=== PATIENT | male | born 1950 | race Caucasian/White ===

== ENCOUNTER 2016-07-06 13:48 | Observation (INO) | payer MEDICARE ==
--- NOTE | 2016-07-06 14:01 | ED.PDOC ---
History of Present Illness - General Chief Complaint: Neuro Symptoms/Deficits Stated Complaint: Slurred Speech Last known well 30 minutes ago Time Seen by Provider: 07/06/16 13:59 Source: patient, other - friend Exam Limitations: no limitations - History of Present Illness Initial Comments: 66 yo M with hx of CVA and TIA presents with 30 minutes of slurred speech, per his friend. Also had left sided weakness. The weakness and speech slurring has improved. Timing/Duration: 1/2 hour Severity: moderate Improving Factors: nothing Worsening Factors: nothing Associated Symptoms: denies symptoms Allergies/Adverse Reactions: Allergies NO KNOWN ALLERGY Allergy (Verified 07/06/16 13:49) Home Medications: Ambulatory Orders Acetaminophen [Tylenol] 1,000 mg PO QID 07/06/16 Aspirin [(None)] 325 mg PO DAILY 07/06/16 Atorvastatin Calcium [Lipitor] 20 mg PO DAILY 07/06/16 Finasteride [Proscar] 5 mg PO DAILY 07/06/16 Gabapentin [Neurontin] 100 mg PO TID 07/06/16 Glipizide [Glipizide ER] 5 mg PO DAILY 07/06/16 Ibuprofen [Advil] 600 mg PO QID 07/06/16 Lisinopril 20 mg PO BID 07/06/16 Metformin HCl [Glucophage] 1,000 mg PO BID 07/06/16 Tramadol HCl 50 mg PO TID 07/06/16 Review of Systems - Review of Systems Constitutional: States: no symptoms reported EENTM: States: no symptoms reported Respiratory: States: no symptoms reported Cardiology: States: no symptoms reported Gastrointestinal/Abdominal: States: no symptoms reported Genitourinary: States: no symptoms reported Musculoskeletal: States: no symptoms reported Neurological: States: see HPI Endocrine: States: no symptoms reported Hematologic/Lymphatic: States: no symptoms reported Family Medical History - Family History Grandparents Family History: Unknown Physical Exam - Physical Exam General Appearance: Alert Eye Exam: bilateral normal Ears, Nose, Throat: normal ENT inspection Neck: non-tender, full range of motion, supple Respiratory: lungs clear Cardiovascular/Chest: regular rate, rhythm Gastrointestinal/Abdominal: normal bowel sounds, non tender, soft Back Exam: no CVA tenderness Extremity: normal range of motion, non-tender, normal inspection 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 EKG read by me showed NSR with no ST changes nor T wave inversion. Troponin negative. 07/06/16 14:51 ABCD2 score= 5 . Moderate risk for CVA in the next 48 hours. Admitted to medicine for observation. Departure - Departure Disposition: Discharge to Home or Self Care Condition: Serious Departure Forms: ED Discharge - Pt. Copy, Patient Portal Self Enrollment Home Medications: Ambulatory Orders Acetaminophen [Tylenol] 1,000 mg PO QID 07/06/16 Aspirin [(None)] 325 mg PO DAILY 07/06/16 Atorvastatin Calcium [Lipitor] 20 mg PO DAILY 07/06/16 Finasteride [Proscar] 5 mg PO DAILY 07/06/16 Gabapentin [Neurontin] 100 mg PO TID 07/06/16 Glipizide [Glipizide ER] 5 mg PO DAILY 07/06/16 Ibuprofen [Advil] 600 mg PO QID 07/06/16 Lisinopril 20 mg PO BID 07/06/16 Metformin HCl [Glucophage] 1,000 mg PO BID 07/06/16 Tramadol HCl 50 mg PO TID 07/06/16
--- NOTE | 2016-07-06 14:16 | CT ---
Study: CT of the Head. Indication: slurred speech Technique: Axial CT images of the head were acquired without intravenous contrast. Comparison: None. Findings: No CT evidence of acute ischemia, acute hemorrhage, mass, mass effect, midline shift, or extra-axial fluid collection. Ventricles are normal in configuration without hydrocephalus. Patchy hypoattenuation of the periventricular and subcortical white matter noted. This is nonspecific but most consistent with chronic microvascular ischemic change. Global parenchymal volume loss and intracranial atherosclerosis noted as well. Paranasal sinuses are adequately aerated. Mastoid air cells are adequately aerated. Osseous structures and soft tissues are unremarkable. Impression: 1. No CT evidence of acute intracranial abnormality. If persistent concern for acute ischemia, correlation with MRI recommended given its greater sensitivity. 2. Senescent changes. Electronically signed by: Chris Gutiérrez MD 07/06/2016 14:16
[2016-07-06] MEDS ORDERED: SODIUM CHLORIDE 0.9% 1000ML 1,000 ML IVS ONE (15:19)
--- NOTE | 2016-07-06 18:26 | HP ---
SUPERVISING PHYSICIAN: Gilberto Perera MD CHIEF COMPLAINT: Change in mental status and right sided weakness. HISTORY OF PRESENT ILLNESS: This is a 66-year-old, male patient who lives in [place]. He was visiting a friend and when they got to his friend's house , his friend noticed he was slurring his words and he could not get the patient out of the car to go into his home. He brought him to the Emergency Room. His slurred speech and weakness lasted about 30 minutes. The patient does not recall any of the events during this time. He states he did have a "stroke" back in April that was untreated, which most likely was a transient ischemic attack. He had no residual problems after the incident in April. He did start seeing Dr. Franco, who is an internal medicine physician in [place]. He had only seen her once. CT of the head was done in the Emergency Room and there was no CT evidence of intracranial abnormality and recommended he may need an MRI at some point. There was also senescent changes. His lab in the Emergency Room showed a hemoglobin 12.5, hematocrit 36.2. Sodium 136, potassium 3, chloride 107, carbon dioxide 19, BUN 20, creatinine 1.30, glucose 176, magnesium 1.5. Cardiac enzymes were negative. BNP 281. I was called for admission. PAST MEDICAL HISTORY: 1. Diabetes mellitus, type 2. 2. History of cerebrovascular accident/transient ischemic attack. 3. Hypertension. 3. Diabetic neuropathy. 4. Chronic back pain. 5. Hyperlipidemia. 6. Benign prostatic hypertrophy. PAST SURGICAL HISTORY: 1. Back surgery. 2. Appendectomy. OUTPATIENT MEDICATIONS: Per the electronic medical record and awaiting verification. ALLERGIES: NO KNOWN DRUG ALLERGIES. SOCIAL HISTORY: He lives in [place]. He lives alone, but has come to [place] to stay with a friend because of his medical problems over the last two to three months. He smokes a cigar about two times monthly. He denies any ETOH or illicit drug use. REVIEW OF SYSTEMS: GENERAL: Denies fever, chills, fatigue or weight changes. HEENT: Denies sinus symptoms, ear pain, vision changes other than as per the history of present illness, or sore throat. RESPIRATORY: Denies wheezing, coughing or shortness of breath. CARDIAC: Denies chest pain, palpitations or tachycardia. GASTROINTESTINAL: Denies nausea, vomiting, diarrhea, constipation or abdominal pain. SKIN: Denies lesions or rashes. GENITOURINARY : Denies hematuria, nocturia or dysuria. NEUROLOGIC: As per history of present illness. PHYSICAL EXAMINATION: VITAL SIGNS: Afebrile. Pulse 67. Blood pressure 162/91. Respiratory rate 20. O2 saturation 94% on room air. GENERAL: This is a 66-year-old, male patient who is lying in his hospital bed. He is in no acute distress. HEENT: Normocephalic, atraumatic. Pupils are equal and reactive. Oropharynx is clear. NECK: Supple without mass. No jugular venous distention. RESPIRATORY: Clear to auscultation bilaterally. CHEST: There is equal rise and fall of the chest with inspiration and expiration of hemoglobin A1c of 7. CARDIAC: Regular rate and rhythm. ABDOMEN: Soft, nondistended, nontender. Bowel sounds are positive. EXTREMITIES: No cyanosis, clubbing or edema. NEUROLOGIC: Awake, alert and oriented times three. There is a very slight facial droop on the right side, but his poll clerk are equal bilaterally. LABORATORY: Labs and films are as per the history of present illness. ASSESSMENT: 1. Transient ischemic attacks. 2. Change in mental status. 3. Diabetes mellitus, type 2. 4. Diabetic neuropathy. 5. Hypertension. 6. Chronic back pain. 7. Hypokalemia. 8. Hypomagnesemia. 9. Renal insufficiency, question acute versus chronic. 10. Elevated BNP of 281 with no diagnosis of congestive heart failure. PLAN: We will admit the patient for observation. We will do q.4h. neuro checks. We will put him on an aspirin daily. We also started sliding scale insulin. He is on a very low dose of Neurontin and he states his diabetic neuropathy is not controlled, so I have increased his Neurontin. I have also given him a p.o. dose of potassium as well as given him magnesium 2 grams. I will repeat his lab in the morning. He does not show any signs of congestive heart failure, but it would be recommended for him to get an echocardiogram as well as a possible renal consult. We will also try to get an appointment with his primary care physician in [place], Dr. Franco and would also recommend an MRI at some point as well as maybe a neurologic consult since he has had stroke-like symptoms in the recent past. I have given him Lovenox for DVT prophylaxis as well as Protonix for ulcer prophylaxis. We re-started his home medications. He also was taking 1000 mg of acetaminophen 4 times daily because of his low back pain. I recommended the patient not take more than 650 mg 4 times daily. He does have an appointment with a pain management doctor in the next month or so. We will continue to monitor the patient closely. Hopefully he can be discharged tomorrow with close followup with his primary care physician in [place]. Dr. Perera is the collaborating physician and available for consultation. #[id number] [facility] MED[facility] CENTERFrancesca
[2016-07-06] MEDS ORDERED: ACETAMINOPHEN 325 MG TAB PO PRN (19:12)
[2016-07-06] MEDS ORDERED: SODIUM CHLORIDE 0.9% (FLUSH) 10 ML SYG IV PRN (19:12)
[2016-07-06] MEDS ORDERED: DEXTROSE 50% 25 GM/50 ML SYG IV PRN (19:17)
[2016-07-06] MEDS ORDERED: GLUCAGON INJ 1 MG VIAL SUBCU PRN (19:17)
[2016-07-06] MEDS ORDERED: IV SET AND CAP CHANGE INJ INJ SCH (19:30)
[2016-07-06] MEDS ORDERED: ENOXAPARIN SODIUM 40 MG/0.4 ML SYG SUBCU SCH (19:30)
[2016-07-06] MEDS ORDERED: PANTOPRAZOLE SODIUM IV 40 MG VIAL IV SCH (19:30)
[2016-07-06] MEDS ORDERED: POTASSIUM CHLORIDE 20 MEQ TAB PO ONE (20:21)
[2016-07-06] MEDS: ASPIRIN (ENTERIC COATED) 325 MG TAB PO SCH (20:28)
[2016-07-06] MEDS ORDERED: NON-FORMULARY MEDICATION 1 EA MIS (Lisinopril [Lisinopril] 20 MG) PO SCH (21:00)
[2016-07-06] MEDS ORDERED: traMADol HCL 50 MG TAB PO PRN (21:01)
[2016-07-06] MEDS: INSULIN LISPRO 100 UNITS/ML PEN SUBCU SCH (21:29)
[2016-07-06] MEDS ORDERED: LISINOPRIL 10 MG TAB ONE (21:35)
[2016-07-06] MEDS: GABAPENTIN 300 MG CAP PO SCH (21:35)
[2016-07-06] MEDS ORDERED: MAGNESIUM SULFATE PREMIX 2GM 2 GM in PREMIX BAG 1 BAG IVPB ONE (22:38)
[2016-07-06] MEDS ORDERED: amLODIPine BESYLATE 5 MG TAB PO SCH (22:56)
[2016-07-06] MEDS ORDERED: MAGNESIUM SULFATE PREMIX 2GM 50 ML IVPB ONE (23:04)
[2016-07-06] MEDS ORDERED: cloNIDine HCL 0.1 MG TAB PO ONE (23:05)
[2016-07-07] MEDS ORDERED: POTASSIUM CHLORIDE 20 MEQ TAB PO ONE (07:18)
[2016-07-07] MEDS: INSULIN LISPRO 100 UNITS/ML PEN SUBCU SCH ×2 (07:41→11:34)
[2016-07-07] MEDS: GABAPENTIN 300 MG CAP PO SCH (08:44)
[2016-07-07] MEDS: ASPIRIN (ENTERIC COATED) 325 MG TAB PO SCH (08:44)
[2016-07-07] MEDS ORDERED: ATORVASTATIN 20 MG TAB PO SCH (09:00)
[2016-07-07] MEDS ORDERED: SODIUM CHLORIDE 0.9% (FLUSH) 10 ML SYG IV SCH (09:00)
[2016-07-07] MEDS ORDERED: glipiZIDE EXTENDED REL (XL) 5 MG TAB PO SCH (09:00)
[2016-07-07] MEDS ORDERED: LISINOPRIL 10 MG TAB PO SCH (09:00)
[2016-07-07] MEDS ORDERED: FINASTERIDE 5 MG TAB PO SCH (09:00)
[2016-07-07 14:40] VITALS: BP 155/85; TEMP 97.5; O2SAT 96
--- NOTE | 2016-07-08 13:32 | DS ---
SUPERVISING PHYSICIAN: Gilberto Perera MD DISCHARGE DIAGNOSIS: 1. Transient ischemic attack. 2. Change in mental status. 3. Diabetes mellitus, type 2. 4. Diabetic neuropathy. 5. Hypertension. 6. Chronic back pain. 7. Hypokalemia. 8. Hypomagnesemia. 9. Acute renal insufficiency. 10. Elevated BNP of 281 with no diagnosis of congestive heart failure. HISTORY OF PRESENT ILLNESS: This is a 66-year-old, male patient who lives in [place]. He was visiting a friend and when they got to his friend's home here in [place], his friend noticed he was slurring his words and he could not get the patient out of the car to go into his home. He brought the patient to the Emergency Room. His slurred speech and weakness lasted about 30 minutes. The patient did not recall any of the events during this time. The patient told me he did have a "stroke" back in April that was untreated, which most likely was a transient ischemic attack. He had no residual problems after the incident in April. He did start seeing Dr. Franco in [place] several months ago, but he has only seen her once. CT of the head was done in the Emergency Room and there was no CT evidence of intracranial abnormality, there were some senescent changes and recommended a followup MRI. His lab in the Emergency Room showed a hemoglobin 12.5, hematocrit 36.2. Sodium 136, potassium 3, chloride 107, carbon dioxide 19, BUN 20, creatinine 1.30, glucose 176, magnesium 1.5. Cardiac enzymes were negative. BNP 281. He was admitted to the hospital. HOSPITAL COURSE: The patient had no further complaints of any neurologic changes , slurred speech, or weakness. His magnesium was replaced as well as his potassium. He did have some complaints of neuropathic pain that he said he has had problems with for several years, most likely diabetic neuropathy that is mostly located in his lower back. He does have a pain management appointment at some point. His Neurontin was increased to 300 mg t.i.d. and he got a significant amount of relief from the increased dosage of Neurontin. He had been taking 4000 mg of Tylenol daily as well as 2400 mg of ibuprofen daily because of his back pain and after increasing the Neurontin, he did not need the high dosage of Tylenol, nor did he need the ibuprofen. He was cautioned not to take more than 2400 mg of ibuprofen or Tylenol daily. CBC was stable. His potassium came up to 3.3 and his magnesium came up to 1.6. Since he had no further stroke-like symptoms and no complications during his hospital stay, he can be discharged home today. DISCHARGE PLAN: The patient is to be discharged home in stable condition. He is to resume his previous activity. He is also to resume his prior home medications except I will give him a prescription for the Neurontin at a higher dosage. He is cautioned against taking as much Tylenol and ibuprofen as he had before. He has an appointment with Dr. Franco on 07/14/16 at 1:30 PM. It is recommended that he get an MRI due to his multiple incidences of transient ischemic attacks. His BNP was elevated at 281, so he may warrant having an echocardiogram. He is on an NIKKY inhibitor. He should most likely get an electrolyte panel when he sees Dr. Franco to check his potassium and his magnesium. He has been given an aspirin daily. His creatinine did normalize, but his renal function should probably be followed. He is to return to the hospital or followup in the Emergency Room or call Dr. Franco' office for any further problems or complications. Dr. Perera is the collaborating physician and available for consultation. DISCHARGE MEDICATIONS: 1. Tramadol. 2. Ibuprofen p.r.n. 3. Lipitor. 4. Acetaminophen p.r.n. 5. Finasteride. 6. Glipizide. 7. Gabapentin. 8. Lisinopril. 9. Metformin. 10. Aspirin. #[id number] #[id number] [facility]
== END 2016-07-07 14:42 | disposition home or self-care (01) ==
LOC: ER 13:48 → EDSEX 13:48 → MS 18:25
PROVIDERS: ADMIT Family Medicine; ATTEND Nurse Practitioner Acute Care
DX: G45.9 Transient cerebral ischemic attack, unspecified (principal); R41.82 Altered mental status, unspecified; E11.42 Type 2 diabetes mellitus with diabetic polyneuropathy; I10 Essential (primary) hypertension; G89.29 Other chronic pain; M54.5 Low back pain; E87.6 Hypokalemia; E83.42 Hypomagnesemia; N17.9 Acute kidney failure, unspecified; R78.89 Finding of other specified substances, not normally found in blood; N40.0 Benign prostatic hyperplasia without lower urinary tract symptoms; E78.5 Hyperlipidemia, unspecified; Z79.84 Long term (current) use of oral hypoglycemic drugs; Z79.82 Long term (current) use of aspirin; Z79.899 Other long term (current) drug therapy; Z90.49 Acquired absence of other specified parts of digestive tract
CPT/HCPCS: 36415 ×3; 36416 ×3; 70450; 80048; 80053; 80076; 81001; 82550; 82553; 82948 ×4; 83036; 83735; 83880; 84484; 85025 ×2; 85610; 85730; 94762; 96361; 96365; 96372 ×2; 96375; 99284; G0378; J1650; J1815; J3475; J7030